=== PATIENT | male | born 1985 | race Caucasian/White ===

== ENCOUNTER 2020-03-23 22:39 | Emergency (ER) | payer BC, MEDICAID, SELFPAY ==
[~2020-03-23] VITALS: Ht 167.6 cm; Wt 68.3 kg
[2020-03-23] MEDS ORDERED: FLUORESCEIN OPHTH 1 MG STRIP OS ONE (23:30)
[2020-03-23] MEDS ORDERED: PROPARACAINE 0.5% OPHTH SOL 15ML OS ONE (23:30)
[2020-03-23] MEDS ORDERED: ERYT5OIN25 OS (23:49)
[2020-03-24] MEDS ORDERED: ERYTHROMYCIN OPHTH OINT OS ONE
[2020-03-24 00:07] VITALS: BP 139/75
== END 2020-03-24 00:09 | disposition home or self-care (01) ==
LOC: M ED 22:39
DX: T15.02XA Foreign body in cornea, left eye, initial encounter (principal); X19.XXXA Contact with other heat and hot substances, initial encounter; Y92.9 Unspecified place or not applicable; Y93.89 Activity, other specified; Y99.9 Unspecified external cause status